=== PATIENT | male | born 1985 | race Caucasian/White ===

== ENCOUNTER → 2019-07-14 | Outpatient (CLI) | payer OTHER ==
--- NOTE | 2019-07-14 18:48 | Diagnostic Imaging Report ---
PROCEDURE: MR imaging left lower extremity without contrast. TECHNIQUE: Multiplanar, multisequence non contrast enhanced MR imaging of the left lower extremity was accomplished. INDICATION: Foot pain. COMPARISON: There are no prior studies available for comparison. FINDINGS: It is reported that the patient suffered an injury a few months ago and has pain in the midfoot. A patricia was placed at the area of concern. There are essentially nondisplaced transverse fractures extending to the bases of the second, third and fourth metatarsals. There is some increased signal about the fracture lines on the T2 STIR axial series consistent with bone edema. There are also vague areas of increased signal within the lateral aspect of the first metatarsal base, the first cuneiform and to a lesser degree the second and third cuneiforms. I suspect these findings are related to bone edema from recent contusion and/or microfracture. The Lisfranc joint is not seen to be widened but the Lisfranc ligament itself is not well visualized. There is also generalized edema/inflammation of the soft tissues of the dorsum of the foot. There is no mass or abscess visualized. IMPRESSION: 1. There are transverse nondisplaced fractures of the bases of the second, third and fourth metatarsals. There also appear to be bone contusions at the base of the first metatarsal and of the first, second and third cuneiforms. 2. The Lisfranc joint is not seen to be widened but the Lisfranc ligament itself is not well visualized and the poor visualization of the Lisfranc ligament does raise a question of a partial tear. An orthopedic consult should be considered. 3. There is generalized soft tissue edema of the dorsum of the foot. Dictated by: Dictated on workstation # [id number]
== END ==
LOC: RAD 13:14
PROVIDERS: ATTEND Nurse Practitioner Primary Care
DX: S92.325A Nondisplaced fracture of second metatarsal bone, left foot, initial encounter for closed fracture (principal); S92.335A Nondisplaced fracture of third metatarsal bone, left foot, initial encounter for closed fracture; S92.345A Nondisplaced fracture of fourth metatarsal bone, left foot, initial encounter for closed fracture